=== PATIENT | male | born 1995 | race Hispanic/Latino ===

== ENCOUNTER 2017-10-04 17:15 | Outpatient (CLI) | payer OTHER ==
[~2017-10-04 17:15] MED LIST: NEXIUM 24HR20 MG PO
== END 2017-10-04 17:22 | disposition short-term general hospital (02) ==
LOC: AMB 17:15
DX: M25.512 Pain in left shoulder (principal); M21.822 Other specified acquired deformities of left upper arm; V49.88XA Car occupant (driver) (passenger) injured in other specified transport accidents, initial encounter; Y92.414 Local residential or business street as the place of occurrence of the external cause
CPT/HCPCS: A0425; A0427

== ENCOUNTER 2017-10-04 17:25 | Emergency (ER) | payer OTHER ==
[~2017-10-04] VITALS: Ht 162.6 cm; Wt 72.6 kg
[2017-10-04 19:28] VITALS: BP 128/73; TEMP 98.4
== END 2017-10-04 19:48 | disposition home or self-care (01) ==
LOC: ED 17:25
PROC: 0HQ3XZZ Repair Left Ear Skin, External Approach (ICD-10-PCS; principal; 2017-10-04)
PROC: 2W39X1Z Immobilization of Left Upper Extremity using Splint (ICD-10-PCS; 2017-10-04)
DX: S01.312A Laceration without foreign body of left ear, initial encounter (principal); S41.012A Laceration without foreign body of left shoulder, initial encounter; S42.025A Nondisplaced fracture of shaft of left clavicle, initial encounter for closed fracture; V43.52XA Car driver injured in collision with other type car in traffic accident, initial encounter; Y93.89 Activity, other specified; Y92.89 Other specified places as the place of occurrence of the external cause
CPT/HCPCS: 96374; 96375; 99284; J1885; J2405; L3650

== ENCOUNTER 2017-10-17 10:19 | Emergency (ER) | payer OTHER ==
[~2017-10-17] VITALS: Ht 172.7 cm; Wt 65.8 kg
[2017-10-17 11:06] VITALS: BP 126/80; TEMP 98.2
== END 2017-10-17 11:12 | disposition home or self-care (01) ==
LOC: ED 10:19
DX: Z48.02 Encounter for removal of sutures (principal)

== ENCOUNTER 2019-04-07 13:39 | Emergency (ER) | payer OTHER ==
[~2019-04-07] VITALS: Ht 170.2 cm; Wt 61.2 kg
[2019-04-07 14:40] LABS: PLATELET COUNT 245 K/uL (142-355)
[2019-04-07 14:51] LABS: POTASSIUM 3.5 mmol/L (3.6-5.2)
[2019-04-07 16:14] VITALS: BP 110/62; TEMP 98.5
== END 2019-04-07 16:21 | disposition home or self-care (01) ==
LOC: ED 13:39
PROVIDERS: Emergency Medicine Emergency Medical Services
DX: K52.89 Other specified noninfective gastroenteritis and colitis (principal)
CPT/HCPCS: 80053; 81000; 82150; 83690; 85027; 96360; 96365; 96375; 99284; J1885; J2405; Q9963

== ENCOUNTER 2021-06-30 11:06 | Outpatient (CLI) | payer OTHER | END 2021-06-30 21:54 | disposition home or self-care (01) | LOC: CT 11:06 | PROVIDERS: ATTEND Nurse Practitioner Primary Care | DX: R51.9 Headache, unspecified (principal) ==

== ENCOUNTER 2021-11-09 13:18 | Observation (INO) | payer OTHER ==
[~2021-11-09] VITALS: Ht 170.2 cm; Wt 64.4 kg
[2021-11-09 14:07] VITALS: BP 113/76; TEMP 98.7; Ht 170.2 cm; Wt 64.4 kg
[2021-11-09 14:29] LABS: PLATELET COUNT 258 K/uL (142-355)
[2021-11-09 14:48] LABS: PARTIAL THROMBOPLASTIN TIME 25.6 SECONDS (24.5-33.6)
[2021-11-09 16:00] VITALS: BP 101/55; TEMP 97.7
[2021-11-09 20:00] VITALS: BP 105/65; TEMP 98.8
== END 2021-11-09 22:00 | disposition left against medical advice (07) ==
LOC: MED/SURG 13:18
PROVIDERS: ADMIT Family Medicine; ATTEND Family Medicine
DX: R07.89 Other chest pain (principal); Q23.0 Congenital stenosis of aortic valve; I10 Essential (primary) hypertension; E78.00 Pure hypercholesterolemia, unspecified
CPT/HCPCS: 80053; 80307; 82550; 84484; 85027; 85610; 85730; 87635; 93005; 96374; 99220; G0378; G0379; J1650; U0003

== ENCOUNTER 2022-02-13 19:07 | Emergency (ER) | payer OTHER ==
[~2022-02-13] VITALS: Ht 172.7 cm; Wt 61.7 kg
[2022-02-13 22:20] VITALS: BP 111/60; TEMP 97.8
== END 2022-02-13 22:25 | disposition home or self-care (01) ==
LOC: ED 19:07
DX: S00.83XA Contusion of other part of head, initial encounter (principal); M54.2 Cervicalgia; S00.212A Abrasion of left eyelid and periocular area, initial encounter; Y09 Assault by unspecified means; Y92.89 Other specified places as the place of occurrence of the external cause
CPT/HCPCS: 90471; 90715; 96372; 99283; J1885